=== PATIENT | female | born 1985 | race Two or more races ===

== ENCOUNTER 2023-10-11 19:44 | Emergency (ER) | payer BC, MEDICAID ==
[~2023-10-11] VITALS: Ht 170.2 cm; Wt 81.5 kg
[2023-10-11 19:55] VITALS: BP 111/72; PULSE 86; RESP 17; TEMP 97.9; O2SAT 99
[2023-10-11] MEDS ORDERED: METH-1182 PO (21:34)
[2023-10-11] MEDS ORDERED: CYCL-614 PO (21:34)
[2023-10-11] MEDS: KETOROLAC TROMETH 60MG/2ML VIAL IM ONE (22:02)
== END 2023-10-11 22:08 | disposition home or self-care (01) ==
LOC: ER 19:44
DX: M54.42 Lumbago with sciatica, left side (principal); Z88.8 Allergy status to other drugs, medicaments and biological substances; W18.39XA Other fall on same level, initial encounter; Y93.89 Activity, other specified; Y92.89 Other specified places as the place of occurrence of the external cause; Y99.8 Other external cause status
CPT/HCPCS: 96372; 99283; J1885

== ENCOUNTER 2024-08-13 15:25 | Emergency (ER) | payer BC, MEDICAID ==
[~2024-08-13] VITALS: Ht 170.2 cm; Wt 76.3 kg
[~2024-08-13 15:25] MED LIST: CYCL-614 PO; METH-1182 PO
[2024-08-13 16:17] VITALS: BP 114/74; PULSE 85; RESP 18; TEMP 98.5; O2SAT 97
[2024-08-13] MEDS: KETOROLAC TROMETH 60MG/2ML VIAL IM ONE (16:36)
--- NOTE | 2024-08-13 16:39 | ED.PDOC ---
Back pain HPI HPI Comments A 38 YEAR OLD FEMALE PRESENTS TO THE ED WITH CHIEF COMPLAINT OF BACK/LEG PAIN. PATIENT REPORTS THAT SHE HAS BEEN EXPERIENCING LEFT LOWER BACK PAIN THAT RADIATES DOWN HER LEFT LEG FOR THE PAST 2 DAYS. 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 LOW BACK PAIN RADIATES TO LEFT LOWER LEG. PATIENT DENIES ANY NUMBNESS, WEAKNESS, FALL, OR INJURY. PT IS ABLE TO WORK WITH NORMAL GAIT. NO OTHER SYMPTOMS REPORTED AT THIS TIME OF CARE. Chief Complaint: Back Pain Time Seen by MD: 16:35 Reviewed Notes: Nurses Notes, Medications, Allergies Allergies: Uncoded Allergies: IMETREX (Allergy, Unknown, 10/11/23) Home Meds Active Scripts Methocarbamol (Methocarbamol) 750 Mg Tab, 750 MG PO BID, #20 TAB Prov:SEAN CRAVEN 08/13/24 Ibuprofen (Ibuprofen) 800 Mg Tab, 1 TAB PO TID, #30 TAB Prov:SEAN CRAVEN 08/13/24 Methocarbamol (Methocarbamol) 750 Mg Tab, 1500 MG PO QID for 20 Days, #160 TAB Prov:CHERYL LOPEZ [facility] 10/11/23 Cyclobenzaprine HCl (Cyclobenzaprine Hydrochlo) 5 Mg Tab, 5 MG PO TIDPRN PRN, #20 TAB Prov:CHERYL LOPEZ [facility] 10/11/23 Information Source: Patient Mode of Arrival: Ambulatory Timing: Days Duration: Since onset Location of Back pain: (L) Lower back Radiates to: Posterior: (L) Buttocks, (L) Calf, (L) Thigh Radiates to: Lateral: (L) Buttocks, (L) Calf, (L) Thigh Severity: Moderate Prehospital treatment: None Quality: Burning, Cramping Onset: Bending, Lifing Circumstance: Work Related History of: None Modifying Factors: Movement Associated signs and symptoms: None Past Medical History PAST MEDICAL HISTORY: Anxiety Surgical History: Denies all surgeries WELLNESS PROGRAM MANAGER History: No Pertinent WELLNESS PROGRAM MANAGER History Family History Family History: Reviewed,noncontributory to illness, No family hx of Cancer, No family hx of DM, No family hx of Heart michel, No family hx of HTN, No family hx ofKidney michel, No family hx of Liver michel, No family hx of Lung michel, No family hx of Stroke Social History Smoker: Non-Smoker Alcohol: Denies ETOH Use Drugs: Denies Drug Use Lives In: Home Constitutional: denies: chills, diaphoresis, fatigue, fever, malaise, sweats, weakness, others EENTM: denies: blurred vision, double vision, ear bleeding, ear discharge, ear drainage, ear pain, ear ringing, eye pain, eye redness, hearing loss, mouth pain, mouth swelling, nasal discharge, nose bleeding, nose congestion, nose pain, photophobia, tearing, throat pain, throat swelling, voice changes, others Respiratory: denies: cough, hemoptysis, orthopnea, SOB at rest, shortness of breath, SOB with excertion, stridor, wheezing, others Cardiovascular: denies: chest pain, dizzy spells, diaphoresis, Dyspnea on exertion, edema, irregular heart beat, left arm pain, lightheadedness, palpitations, PND, syncope, others Gastrointestinal: denies: abdomen distended, abdominal pain, blood streaked bowels, constipated, diarrhea, dysphagia, difficulty swallowing, hematemesis, melena, nausea, poor appetite, poor fluid intake, rectal bleeding, rectal pain, vomiting, others Genitourinary: denies: abnormal vagina bleeding, burning, dyspareunia, dysuria, flank pain, frequency, hematuria, incontinence, pain, , vagina discharge, urgency, others Neurological: denies: dizziness, fainting, headache, left sided numbness, left sided weakness, numbness, paresthesia, pre-existing deficit, right sided numbness, right sided weakness, seizure, speech problems, tingling, tremors, weakness, others Musculoskeletal: reports: muscle pain, others (LEFT LOWER BACK PAIN RADIATES DOWN LEFT LEG); denies: back pain, gout, joint pain, joint swelling, muscle stiffness, neck pain Integumetry: denies: bruises, change in color, change in hair/nails, dryness, laceration, lesions, lumps, rash, wounds, others Allergic/Immunocompromised: denies: Difficulty Healing, Frequent Infections, Hives, Itching, others Hematologic/Lymphatic: denies: anemia, blood clots, easy bleeding, easy bruising, swollen glands, others Endocrine: denies: excessive hunger, excessive sweating, excessive thirst, excessive urination, flushing, intolerance to cold, intolerance to heat, unexplained weight gain, unexplained weight loss, others Psychiatric: denies: anxiety, bipolar disorder, depression, hopeless, panic disorder, schizophrenia, sleepless, suicidal, others All Other Systems: Reviewed and Negative Physical Exam General Appearance: No Apparent Distress, Normal HEENT: Normal ENT Inspection, PERRL/EOMI Neck: Full Range of Motion, Non-Tender, Normal, Normal Inspection Respiratory: Chest Non-Tender, Lungs Clear, No Accessory Muscle Use, No Respiratory Distress, Normal Breath Sounds Cardiovascular: No Edema, No JVD, No Murmur, No Gallop, Normal Peripheral Pulses, Regular Rate/Rhythm Breast Exam: Deferred Gastrointestinal: No Organomegaly, Non Tender, No Pulsatile Mass, Normal Bowel Sounds, Soft Genitalia: Deferred Pelvic: Deferred Rectal: Deferred Extremities: No calf tenderness, Normal capillary refill, Normal inspection, Normal range of motion, Non-tender, No pedal edema, Other (NO DVT SIGN OF LEFT LOWER LEG. ) Musculoskeletal : Location: Bilateral Extremity Location: Back Apperance: Tenderness (AND MUSCLE SPASM ON LOWER BACK, NO BONY TENDERNESS, SWELLING AND DEFORMITY. ) Neurologic: Alert, staffing program manager II-XII nml as Tested, No Motor Deficits, Normal Affect, Normal Mood, No Sensory Deficits Cerebellar Function: Normal Reflexes: Normal Skin: Dry, Normal Color, Warm Peripheral Pulses: 2+ carotid (R), 2+ carotid (L), 2+ dorsalis pedis (R), 2+ dorsalis pedis (L) Lymphatic: No Adenopathy Was a procedure done? Was a procedure done?: No Back Pain Differential Dx Differential Diagnosis: Musculoskeletal Pain, Strain, Other (LOW BACK PAIN WITH LEFT SCIATIC ) X-Ray, Labs, Meds, VS Vital Signs Date Time Temp Pulse Resp B/P (MAP) Pulse Ox O2 Delivery O2 Flow Rate FiO2 08/13/24 16:17 98.5 85 18 114/74 (87) 97 98.5 08/13/24 16:17 85 18 97 Room Air 08/13/24 16:04 98.5 85 18 114/74 (87) 97 Current Medications Medications (Trade) Dose Ordered Sig/Dashawn Route Start Time Stop Time Status Last Admin Ketorolac Tromethamine (Toradol Injection) 60 mg ONCE ONCE IM 08/13/24 16:30 08/13/24 16:31 DC 08/13/24 16:36 L-SPINE XR:FINDINGS: There are no acute fractures or subluxations. IMPRESSION: No acute fracture or subluxation. X-Ray, Labs, Meds, VS Comment EXTERNAL MEDICAL RECORDS REVIEWED: [NONE] INDEPENDENT HISTORIANS: [NONE] SOCIAL DETERMINANTS OF HEALTH: [NONE] LABS ORDERED: NONE REVIEWED AND INTERPRETED RESULTS: L-SPINE XR INTERPRETED BY ME. NO ACUTE FINDINGS. NO FRACTURES OR DISLOCATION. PENDING RADIOLOGIST REPORT. IMAGING ORDERED: L-SPINE XR TREATMENTS ORDERED: TORADOL 60MG IM PROCEDURES PERFORMED: NONE CRITICAL CARE TIME: NONE I HAVE DISCUSSED THE PATIENT WITH THE ATTENDING PHYSICIAN DR. MCKEON AND HE AGREES WITH THE PATIENT'S PLAN OF CARE AND DISPOSITION. BASED ON HISTORY OF PRESENT ILLNESS, AND PHYSICAL EXAM, PATIENT WILL BE DISCHARGED HOME. DISCUSSED PLAN FOR DISCHARGE HOME WITH RX. MEDICATION WARNINGS GIVEN. SHARED DECISION MAKING: DISCUSSED WITH PATIENT THAT THEIR WORKUP WAS NORMAL. PATIENT INSTRUCTED TO FOLLOW UP WITH PRIMARY CARE PROVIDER IN 1-2 DAYS FOR RE- EVALUATION OF SYMPTOMS. PATIENT VERBALIZES UNDERSTANDING TO RETURN TO ED FOR NEW OR WORSENING SYMPTOMS OR IF FOLLOW UP WITH PCP CANNOT BE OBTAINED. PATIENT FEELS COMFORTABLE GOING HOME AT THIS TIME. ALL QUESTIONS ADDRESSED AT TIME OF DISCHARGE. Images Reviewed?: Images reviewed and evaluated by me Time of 1ST Reevaluation: 17:13 Reevaluation 1ST: Improved Patient Education/Counseling: Diagnosis, Treatment, Need For Follow Up Family Education/Counseling: Diagnosis, Treatment, Need For Follow Up, No F amily Present Medical Screening: No EMC Exist At This Time Departure 1 Departure Time of Disposition: 17:13 Impression: Primary Impression: Acute low back pain with left-sided sciatica Qualified Codes: M54.42 - Lumbago with sciatica, left side Disposition: 01 HOME / SELF CARE / HOMELESS Condition: Stable Additional Instructions: FOLLOW-UP WITH PCP IN 1 TO 2 DAYS. TAKE MEDICATIONS PRESCRIBED. RETURN TO ED FOR ANY NEW OR WORSENING SYMPTOMS. e-Prescriptions Methocarbamol (Methocarbamol) 750 Mg Tab 750 MG PO BID, #20 TAB Prov: SEAN CRAVEN 08/13/24 Ibuprofen (Ibuprofen) 800 Mg Tab 1 TAB PO TID, #30 TAB Prov: SEAN CRAVEN 08/13/24 Discharged With: Self Critical Care Note Critical Care Time?: No Stability Stability form required: No Heart Score Heart Score: Heart Score Response (Comments) Value History N/A 0 EKG N/A 0 Age N/A 0 Risk Factors N/A 0 Troponin N/A 0 Total 0 I personally scribed for SEAN CRAVEN ([email or web address]) on 08/13/24 at 16:39. Electronically submitted by Tano Oliver ([email or web address]). I personally scribed for SEAN CRAVEN ([email or web address]) on 08/13/24 at 16:49. Electronically submitted by Tano Oliver ([email or web address]). I personally scribed for SEAN CRAVEN ([email or web address]) on 08/13/24 at 17:09. Electronically submitted by Tano Oliver ([email or web address]). SEAN CRAVEN Aug 13, 2024 16:39
[2024-08-13] MEDS ORDERED: IBUP-1456 PO (16:57)
[2024-08-13] MEDS ORDERED: METH-1182 PO (16:57)
--- NOTE | 2024-08-13 17:04 | DVH ---
INDICATION: low back pain to left lower leg TECHNIQUE: 4 views of the lumbar spine were obtained. COMPARISON: None FINDINGS: There are no acute fractures or subluxations. IMPRESSION: No acute fracture or subluxation.
== END 2024-08-13 17:11 | disposition home or self-care (01) ==
LOC: ER 15:25
DX: M54.42 Lumbago with sciatica, left side (principal); F41.9 Anxiety disorder, unspecified; Z88.8 Allergy status to other drugs, medicaments and biological substances; Z79.899 Other long term (current) drug therapy
CPT/HCPCS: 72100; 96372; 99283; J1885

== ENCOUNTER 2024-10-22 22:49 | Emergency (ER) | payer BC ==
[~2024-10-22] VITALS: Ht 170.2 cm; Wt 78.4 kg
[~2024-10-22 22:49] MED LIST changes: +IBUP-1456 PO
[2024-10-22 23:22] VITALS: TEMP 97.9
--- NOTE | 2024-10-22 23:46 | DVH ---
CHEST RADIOGRAPH Indication: Chest wall trauma/central Technique: Single frontal view of the chest was obtained COMPARISON: None FINDINGS: Lines and Tubes: None Lungs: Clear Pleura: No effusion. No pneumothorax. Cardiomediastinal contours: Unremarkable IMPRESSION: No abnormality.
[2024-10-23] MEDS ORDERED: IBUP-1455 PO (00:06)
[2024-10-23] MEDS ORDERED: ACET500T58 PO (00:06)
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
[2024-10-23] MEDS: HYDROcodone-ACET 5/325MG TAB PO ONE (02:51)
[2024-10-23] MEDS: KETOROLAC TROMETH 60MG/2ML VIAL IM ONE (02:52)
[2024-10-23 02:58] VITALS: BP 112/72; PULSE 64; RESP 16; O2SAT 99
--- NOTE | 2024-10-23 06:16 | ECG ---
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
== END 2024-10-23 03:00 | disposition home or self-care (01) ==
LOC: ER 22:49
DX: S20.219A Contusion of unspecified front wall of thorax, initial encounter (principal); F41.9 Anxiety disorder, unspecified; Z79.1 Long term (current) use of non-steroidal anti-inflammatories (NSAID); Z79.899 Other long term (current) drug therapy; X58.XXXA Exposure to other specified factors, initial encounter; Y93.89 Activity, other specified; Y92.89 Other specified places as the place of occurrence of the external cause; Y99.8 Other external cause status
CPT/HCPCS: 71045; 93005; 96372; 99283; J1885